=== PATIENT | female | born 1945 | race Caucasian/White ===

== ENCOUNTER 2021-01-23 10:00 | Day surgery (SDC) | payer BC, SELFPAY ==
[~2021-01-23] VITALS: Ht 157.5 cm; Wt 44.9 kg
[~2021-01-23 10:00] MED LIST: CEFAZOLIN SOD 1 GM in D5W 50 ML IV ONE
[2021-01-23] MEDS ORDERED: BUPIVACAINE /PF 0.25% 30 ML VIAL INJ ONE (14:26)
[2021-01-23] MEDS ORDERED: NS 100 ML BAG IV ONE (14:26)
[2021-01-23] MEDS ORDERED: LR 1,000 ML IV.SOLN IV ONE (14:26)
[2021-01-23] MEDS ORDERED: DEXAMETHASONE SOD PHOSPHATE 4 MG/ML VIAL IVP ONE (14:26)
[2021-01-23] MEDS ORDERED: ONDANSETRON HCL 4 MG/2 ML VIAL IVP ONE (14:26)
[2021-01-23] MEDS ORDERED: HEPARIN SODIUM,PORCINE 10,000 UNIT/ML VIAL IV ONE (14:26)
[2021-01-23] MEDS ORDERED: WATER FOR IRRIGATION,STERILE 1,000 ML IRRIG.SOLN IR ONE (14:26)
[2021-01-23] MEDS ORDERED: MIDAZOLAM HCL 5 MG/5 ML VIAL IVP ONE (14:26)
[2021-01-23] MEDS ORDERED: NS IRRIG SOLN 1000 ML IR ONE (14:26)
[2021-01-23] MEDS ORDERED: PROPOFOL 200MG/ 20ML VIAL (DIPRIVAN) IV ONE (14:26)
[2021-01-23] MEDS ORDERED: SEVOFLURANE 15 MIN GAS INH ONE (14:26)
[2021-01-23] MEDS ORDERED: HYDROmorphone 1 MG/ML INJ. CARTRIDGE IVP PRN ×2 (15:15)
[2021-01-23] MEDS ORDERED: MEPERIDINE HCL/PF 25 MG/ML DISP.SYRIN IVP PRN (15:15)
[2021-01-23] MEDS ORDERED: LABETALOL 100 MG/ 20ML VIAL IVP PRN (15:15)
[2021-01-23] MEDS ORDERED: LR 1,000 ML IV SCH (15:15)
[2021-01-23] MEDS ORDERED: hydrALAZINE HCL 20 MG/ML VIAL IVP PRN (15:15)
[2021-01-23] MEDS ORDERED: METOCLOPRAMIDE HCL 10 MG/2 ML VIAL IVP PRN (15:15)
[2021-01-23] MEDS ORDERED: MIDAZOLAM HCL 2 MG/2 ML VIAL (VERSED) IVP PRN (15:15)
[2021-01-23] MEDS ORDERED: D5/0.45 NS 1,000 ML IV SCH (16:00)
[2021-01-23] MEDS ORDERED: HYDROcodone/ACETAMIN 5-325 MG TAB (NORCO/ VICODIN) PO PRN (16:00)
[2021-01-23 19:07] VITALS: BP_SYST 147
== END 2021-01-23 17:25 | disposition home or self-care (01) ==
LOC: SDS 10:00 → SMU 10:05 → SDS 17:25
PROVIDERS: ATTEND Colon & Rectal Surgery
DX: C56.9 Malignant neoplasm of unspecified ovary (principal); I10 Essential (primary) hypertension; K21.9 Gastro-esophageal reflux disease without esophagitis; I25.10 Atherosclerotic heart disease of native coronary artery without angina pectoris; M81.0 Age-related osteoporosis without current pathological fracture; Z90.710 Acquired absence of both cervix and uterus; Z79.899 Other long term (current) drug therapy; Z20.822 Contact with and (suspected) exposure to COVID-19
CPT/HCPCS: 36556; 77001; C1788; J0690; J1100; J1644; J2250; J2405; J2704; J3490; J7060; J7120; U0003; 76000